=== PATIENT | male | born 1970 | race Caucasian/White ===

== ENCOUNTER 2023-06-02 13:59 | Outpatient (AMB) | payer OTHER, SELFPAY ==
[2023-06-02 14:19] VITALS: BP 130/100; PULSE 68; TEMP 36.6; O2SAT 95
--- NOTE | 2023-06-02 14:19 | AM.OFFWIN_ITS ---
Intake Vital Signs 06/02/23 14:19 Weight 267 lb 6 oz BP 130/100 H Blood Pressure Location Rt brachial Position Sitting Pulse 68 Pulse Source Pulse Oximeter Temp 97.9 F Temp Source Temporal Artery Scan Pulse Oximetry (%) 95 Oxygen Delivery Method Room Air Intake Visit Reasons: EP High Blood Pressure Intake Note: pt is here for c/o high blood pressure Patient Tobacco Use Status: Never used Tobacco Allergies No Known Allergies Allergy (Verified 06/02/23 14:20) Do you need a note to return to daycare/school/sports/work: Yes HPI EP High Blood Pressure HPI Details Patient is a 52-year-old male comes to the walk-in clinic along with his PFSH Patient Tobacco Use Status: Never used Tobacco Physical Exam Vital Signs: Last Vital Signs Temp 97.9 F 06/02/23 14:19 Pulse 68 06/02/23 14:19 BP 130/100 H 06/02/23 14:19 Pulse Ox 95 06/02/23 14:19 Oxygen Delivery Method Room Air 06/02/23 14:19 Const General: cooperative, healthy appearing, comfortable, no acute distress, alert, awake, Physically active and well groomed; No anxious, diaphoretic, ill appearing, intoxicated appearing, poor hygiene or tired appearing Nutritional Appearance: average body habitus Orientation/consciousness: oriented to person Limitations: no limitations HEENT Head: Yes normal to inspection, Yes normocephalic and Yes atraumatic Ears: hearing grossly normal bilaterally, external ears normal, EAC's normal and TM abnormal erythematous and with fluid behind the TM Face and sinus: Yes normal facial exam, Yes sinuses nontender and Yes face symm etric Throat: Yes posterior oropharynx normal, Yes tonsils normal, Yes uvula midline, No peritonsillar mass, No postnasal drainage, No uvular edema and No cobblestoning Neck Neck: Yes normal visual inspection, Yes trachea midline, Yes supple, No anterior neck swelling and Yes no JVD Resp Effort & Inspection: normal respiratory effort, able to speak in complete sentences, no audible wheezes, no cough, no grunting, not labored, no nasal flaring, no retractions and symmetric chest movement Auscultation: clear to auscultation bilaterally, no crackles, no rales, no rhonchi, no wheezes, lung sounds not diminished and No rub present Cardio Palpation: normal PMI Rate: regular rate Rhythm: regular rhythm Heart sounds: S1 normal heart sound present and S2 normal heart sound present Skin Other: Good color, warm and dry Neuro General: oriented to person Psych Appearance: grossly normal Mental Status: mental status grossly normal Speech and movement: Normal speech and movement present Affect: normal affect Attitude: cooperative Thought process: Normal thought process present Insight: Good insight present (Psych) Judgement: Good judgement present (Psych) Results Reviewed Results Reviewed: 12 lead EKG NSR, with no ST changes Assessment & Plan Assessment & Plan (1) Hypertension: Code(s): I10 - Essential (primary) hypertension Qualifiers: Hypertension type: primary hypertension Qualified Code(s): I10 - Essential (primary) hypertension Plan: Patient with likely chronic elevated hypertension, as he has not seen his provider for year, and states that he had stopped going to the gym and had started to gain weight. His only symptom is intermittent unsteadiness/vertigo, and he is currently asymptomatic. Other than his elevated BP reading, his vital signs are stable, his 12 lead EKG was normal sinus and his exam is overall unremarkable except for erythema and fluid in his right middle ear, which could be accounting for the vertigo. He was initially on 5mg amlodipine and so I increased this today to 10mg. He can continue to check his readings with his home BP cuff, for which he was advised, and to follow up with PCP in the next week or so. He knows to follow up in the emergency room emergently if he develops any worrisome symptoms, including but not limited to worsening dizziness/vertigo, loss of sensation to his face or body part, difficulty speaking, significantly elevated blood pressure readings, or other worrisome symptoms. (2) Otitis media: Code(s): H66.90 - Otitis media, unspecified, unspecified ear Qualifiers: Chronicity: acute Laterality: right Otitis media type: serous Recurrence: non-recurrent Qualified Code(s): H65.01 - Acute serous otitis media, right ear Plan: Patient has a mild right-sided otitis media, which is mildly injected and erythematous today. This could be accounting for his intermittent vertigo symptoms, so we discussed taking meclizine as needed, and I put him on a course of Augmentin. He knows to follow up if symptoms persist or worsen, and go to the emergency department with worrisome symptoms Medications: New meclizine 25 mg PO TID PRN 20 tabs 0RF dizziness amoxicillin-pot clavulanate 875-125 mg 1 tab PO BID 14 tabs 0RF 7 days sertraline 25 mg PO DAILY 30 tabs 0RF amlodipine 10 mg PO DAILY 30 tabs 0RF Coding Level of Care Code New Pt Level 4 (93376) Diagnoses Primary hypertension I10 Hypertension type: primary hypertension Non-recurrent acute serous otitis media of right ear H65.01 Chronicity: acute Laterality: right Otitis media type: serous Recurrence: non-recurrent
== END 2023-06-02 15:08 | disposition home or self-care (01) ==
LOC: HO.HMGWI 13:59
PROVIDERS: Visit Provider Physician Assistant Medical
DX: I10 Essential (primary) hypertension (principal); H65.01 Acute serous otitis media, right ear
CPT/HCPCS: 99051; 99204